=== PATIENT | male | born 1955 | race Native Hawaiian/Other Pacific Islander ===

== ENCOUNTER → 2019-01-23 | Outpatient (CLI) | payer BC ==
[2019-01-23 12:41] LABS: Appearance,Urine Clear (Clear); Bilirubin,Urine Negative (Negative); Blood,Urine Negative (Negative); Color,Urine Light Yellow; Glucose,Urine (UA) Negative (Negative); Ketones,Urine Negative (Negative); Leukocyte Esterase,Urine Negative (Negative); Nitrite,Urine Negative (Negative); PH, Urine 6.5 (5.0-8.0); Protein,Urine Negative (Negative); Specific Gravity,Urine 1.013 (1.001-1.035); Urobilinogen,Urine <2.0 mg/dL (<2.0)
[2019-01-23 12:42] LABS: Basophils % (A) 1 %; Eosinophils # (A) 0.2 k/uL (0-0.7); Eosinophils % (A) 3 %; HCT 43.4 % (39.0-53.0); HGB 14.5 gm/dL (13.0-17.5); Lymphocytes % (A) 30 %; MCH 31.2 pg (25.0-35.0); MCHC 33.4 g/dL (31.0-37.0); MCV 93.6 fL (80.0-100.0); Mean Platelet Volume 6.5; Monocytes # (A) 0.4 k/uL (0-1.0); Monocytes % (A) 6 %; Neutrophils # (A) 3.7 k/uL (1.3-7.7); Neutrophils % (A) 57 %; Platelet Count 251 k/uL (150-450); RBC 4.64 m/uL (4.30-5.90); RDW 12.9 % (11.5-15.5); WBC 6.5 k/uL (3.8-10.6)
[2019-01-23 12:55] LABS: Prothrombin Time 10.5 sec (9.0-12.0)
[2019-01-23 13:01] LABS: African American GFR (CKD) >90 (>60 ml/min/1.73 sqM); Anion Gap 9 mmol/L; Blood Urea Nitrogen 15 mg/dL (9-20); Calcium 9.1 mg/dL (8.4-10.2); Carbon Dioxide 23 mmol/L (22-30); Chloride 108 mmol/L (98-107); Glucose 109 mg/dL (74-99); Potassium 4.2 mmol/L (3.5-5.1); Sodium 140 mmol/L (137-145)
--- NOTE | 2019-01-23 14:48 | XR ---
EXAMINATION TYPE: XR chest 2V DATE OF EXAM: 01/23/2019 COMPARISON: NONE HISTORY: Cervical spinal canal stenosis. Preoperative evaluation. Recent chest pain. TECHNIQUE: Frontal and lateral views of the chest are obtained. FINDINGS: There is no focal air space opacity, pleural effusion, or pneumothorax seen. The cardiac silhouette size is within normal limits. Mild to moderate multilevel degenerative disc disease of th e thoracic spine is seen. The osseous structures are intact. IMPRESSION: No acute cardiopulmonary process.
== END ==
LOC: LABPAT 11:28
PROVIDERS: ATTEND Orthopaedic Surgery Orthopaedic Surgery of the Spine
DX: Z01.818 Encounter for other preprocedural examination (principal); Z01.812 Encounter for preprocedural laboratory examination; M48.02 Spinal stenosis, cervical region
CPT/HCPCS: 36415; 71046; 80048; 81003; 85025; 85610

== ENCOUNTER 2019-02-01 06:35 | Day surgery (SDC) | payer BC ==
[~2019-02-01 06:35] MED LIST: BACITRACIN 50,000 UNIT, POLYMYXIN B 500,000 UNIT in SODIUM CHLORIDE 0.9% IRRIGATIO 1,00... IRRIGATION ONE; LIDOCAINE 1% 20 ML VIAL (10MG/ML) FOR IV START INTRADERMA PRN; ONDANSETRON 4 MG/2 ML VIAL IVP ONE; ceFAZolin IN SWFI 2 GM/20 ML SYRINGE IVP ONE
[2019-02-01] MEDS: LACTATED RINGERS 1,000 ML IV SCH (07:10)
[2019-02-01] MEDS ORDERED: MIDAZOLAM (PF) 2 MG/2 ML VIAL IV ONE (07:27)
[2019-02-01] MEDS ORDERED: fentaNYL (PF) 50 MCG/ML 2 ML AMP ONE (07:58)
[2019-02-01] MEDS ORDERED: LIDOCAINE 1% INJ 10MG/ML (20 ML MDV) ONE (07:58)
[2019-02-01] MEDS ORDERED: HYDROmorphone (PF) 1 MG/ML ONE (07:58)
[2019-02-01] MEDS ORDERED: PHENYLEPHRINE-0.9% NACL SYG 1 MG/10 ML SYRINGE ONE (07:58)
[2019-02-01] MEDS ORDERED: MIDAZOLAM 2 MG/2 ML VIAL ONE (07:58)
[2019-02-01] MEDS ORDERED: DEXAMETHASONE SOD PHOS (MDV) 100 MG/10 ML VIAL ONE (07:58)
[2019-02-01] MEDS ORDERED: SUCCINYLCHOLINE CHLORIDE 100 MG/5 ML SYR IV ONE (07:58)
[2019-02-01] MEDS ORDERED: PROPOFOL 10 MG/ML 20 ML VIAL IV ONE (07:58)
[2019-02-01] MEDS ORDERED: ePHEDrine SULFATE/0.9% NACL/PF 50 MG/5 ML SYRINGE IV ONE (07:58)
[2019-02-01] MEDS ORDERED: BUPIVACAINE-EPI 0.5%-1:200,000 10 ML VIAL SQ ONE ×2 (08:45)
[2019-02-01] MEDS ORDERED: GELATIN SPONGE,ABSORB (LARGE) 1 EACH SPONGE MISCELLANE ONE (08:45)
[2019-02-01] MEDS ORDERED: THROMBIN (BOVINE) 5,000 UNIT VIAL TOPICAL ONE (08:46)
[2019-02-01] MEDS ORDERED: LACTATED RINGERS 1,000 ML IV ONE (08:47)
[2019-02-01] MEDS ORDERED: MAGNESIUM HYDROXIDE 2,400 MG/10 ML CUP PO PRN (10:56)
[2019-02-01] MEDS ORDERED: HYDROmorphone 1 MG/ML 1 ML SYRINGE IVP PRN (10:56)
[2019-02-01] MEDS ORDERED: DIAZEPAM 5 MG TAB PO PRN (10:56)
[2019-02-01] MEDS ORDERED: ACETAMINOPHEN TAB 325 MG TAB PO PRN (10:56)
[2019-02-01] MEDS ORDERED: ONDANSETRON 4 MG/2 ML VIAL IVP PRN (10:56)
[2019-02-01] MEDS ORDERED: ALBUTEROL NEBULIZED 2.5 MG/3 ML INHALATION PRN (10:57)
[2019-02-01] MEDS ORDERED: FAMOTIDINE 20 MG TAB PO PRN (10:57)
--- NOTE | 2019-02-01 11:05 | P.OP ---
Date of Procedure: 02/01/19 Preoperative Diagnosis: Cervical myelopathy, cervical stenosis C3 4 C4 5 C5 6 C6 7, herniated nucleus pulposus C3 4 C4 5 C5 6 C6 7, upper extremity radiculopathy, upper extremity weakness, neck pain, upper extremity pain Postoperative Diagnosis: Same Anesthesia: GETA Pathology: none sent Condition: stable Disposition: PACU Description of Procedure: BRIEF OPERATIVE NOTE Preoperative Diagnosis:Cervical myelopathy, cervical stenosis C3 4 C4 5 C5 6 C6 7, herniated nucleus pulposus C3 4 C4 5 C5 6 C6 7, upper extremity radiculopathy, upper extremity weakness, neck pain, upper extremity pain Postoperative Diagnosis:Cervical myelopathy, cervical stenosis C3 4 C4 5 C5 6 C6 7, herniated nucleus pulposus C3 4 C4 5 C5 6 C6 7, upper extremity radiculopathy, upper extremity weakness, neck pain, upper extremity pain Procedure: Anterior cervical decompression with discectomy and fusion C3 4 C4 5 C5 6 C6 7 Placement of interbody graftC3 4 C4 5 C5 6 C6 7 Application of anterior cervical plate C3 [id number] Surgeon: Dr. Fair Robotic Weld Technician: Vladislav Wilson is present throughout the entire the case persistence during positioning, dissection, exposure, visualization, and all crucial elements of the case as well as closure. Anesthesia: General anesthesia per Dr. Bejarano Estimated blood loss: Approximately 70 mL Complications: None apparent Components implanted: K2M Mcmullen anterior cervical plate system with a 73 mm plate and 1014 mm screws with 4Vikos interbody allograft bone graft and 1 mL of DBX bone putty Disposition: To recovery room in good stable condition. OPERATIVE INDICATIONS The patient has had long-standing issues in their neck and upper extremities. He was having evidence of myelopathy and weakness at his left upper extremity. He was found have severe cervical stenosis at C3 4 C4 5 C5 6 and C6 7 with disc herniation which correlated well with his neck and upper extremity symptoms. He is not having any benefit despite aggressive conservative care. The patient has been through conservative treatment. We discussed various treatment options including surgery, and the patient wishes to proceed with surgery We discussed the risk, patient's alternatives and benefits of surgery including but not limited to, risk of bleeding risk of infection, risk of need for further surgery, risk of decreased, loss of motion, muscle function, malunion nonunion, hardware failure, nerve damage, paralysis, heart attack, and . The patient had multiple questions on many different occasions and we try to go through them as thoroughly as possible healing which he can understand. We answered his questions as best of our ability and he elected to proceed with surgical intervention. OPERATIVE SUMMARY After discussing all the risks, patient alternatives and benefits at length, the patient elected to proceed with surgical intervention, signed informed consent, and presented for their procedure. The patient was seen and examined in the preoperative holding area and the surgical site was marked. The patient was given antibiotics and brought to the operating room. The patient was positioned on the operating room table in a supine position being careful to pad any bony prominences and pressure points. The patient was sedated and intubated by anesthesia in standard fashion. Once the airway and C-spine were stabilized the patient's arms were padded and tucked at her side, with her shoulders gently taped. The head was placed in a donut pad with the neck in good neutral alignment and position. We were careful to maintain the patient's cervical spine and good neutral alignment and position throughout. The patient was prepped and draped in a normal standard fashion. An appropriate timeout and keystone protocol performed. We were able to proceed with the surgery. The local wound area was infiltrated with local anesthetic. An incision was made longitudinally on the right side with a carotid incision approximately 4 cm in length over the appropriate levels from C3 to C7. Dissection was taken down subcutaneously to the level of the platysma which was split in line with its fibers. Dissection was taken with a carotid approach, with the trachea and esophagus medial and the carotid sheath laterally. We dissected down to the anterior surface of the vertebral bodies from C3 to C7. There were large anterior cervical osteophytes which are palpable. Intraoperative x-ray was taken which showed a marker at the appropriate level at C4 5. With the appropriate level positively confirmed, we were able to proceed with discectomy at the appropriate levels at C3 4 C4 5 C5 6 and C6 7. All of the operative levels were exposed appropriately. The patient had all their twitches back, and there was no evidence of recurrent laryngeal issue. The wound was copiously irrigated and suctioned dry as had been done periodically throughout the case. At the appropriate level/levels, starting at C3 4 and in moving caudally to C4 5 than C5 6 and then C6 7 , I established an annulotomy with an 11 blade scalpel. A discectomy was performed with a combination of pituitary rongeurs, curettes, a high-speed bur, and Kerrison rongeurs. The posterior longitudinal ligament was taken down as were any posterior osteophytes. This gave good central and bilateral foraminal decompression. There had been significant stenosis and evidence of disc herniation particular to the left side at each level and this was remedied with a decompression and discectomy. There is no evidence of any dural tear or leak. The endplates were prepared with a high-speed bur. With the endplates in good parallel position, I was able to size for the appropriate size interbody graft. The wound was irrigated and suctioned dry the graft was prepared and malleted into position. It had good alignment and position with the anterior surface flush with the anterior surface of the vertebral bodies. This was done similarly the appropriate levels first at C3 4 and then at C4 5 than at C5 6 and then at C6 7. With the grafts intact, I was able to measure and contour and appropriate sized plate. The plate was positioned at the midline over the appropriate levels from C3 to C7. Screw holes were established with a hand drill and drill guide. Screws were placed in good alignment and position with excellent bony purchase. They were seated under the locking device. The construct was checked and found to be stable. Intraoperative x-ray was taken which showed good alignment and position of the implants at the appropriate levels. There was no evidence of any dural tear or leak. Good hemostasis was maintained. The wound was copiously irrigated and suctioned dry as had been done periodically throughout the case. The platysma was closed with absorbable suture. The subcutaneous tissue was closed. The subcuticular tissue was closed with absorbable suture. The wound was cleaned and dried and dressed appropriately. A soft cervical collar was placed appropriately. The patient was woken up by anesthesia, extubated, transferred back gently to their hospital bed and brought to the recovery room in good stable condition. The patient will be admitted to the hospital for appropriate postoperative care, medical management and monitoring. We will continue to follow them closely about the postoperative course.
[2019-02-01] MEDS: HYDROmorphone 0.5 MG/0.5 ML SYRINGE IVP PRN ×6 (11:34→20:07)
[2019-02-01 15:27] VITALS: BMI 33.1
[2019-02-01] MEDS: SODIUM CHLORIDE 0.9% 1,000 ML IV SCH (15:33)
[2019-02-01] MEDS: ceFAZolin IN SWFI 2 GM/20 ML SYRINGE IVP SCH (17:51)
[2019-02-01] MEDS: HYDROcodone/APAP 5-325MG 1 EACH TAB PO PRN ×2 (18:05→23:18)
[2019-02-01] MEDS: BENZOCAINE/MENTHOL LOZENG 1 EACH LOZENGE MUCOUS MEM PRN (20:06)
[2019-02-02] MEDS: ceFAZolin IN SWFI 2 GM/20 ML SYRINGE IVP SCH (00:07)
[2019-02-02] MEDS: BENZOCAINE/MENTHOL LOZENG 1 EACH LOZENGE MUCOUS MEM PRN ×2 (02:43→07:32)
[2019-02-02] MEDS: SODIUM CHLORIDE 0.9% 1,000 ML IV SCH ×2 (03:43→08:30)
[2019-02-02] MEDS: LACTATED RINGERS 1,000 ML IV SCH (07:22)
[2019-02-02 07:31] VITALS: BP 160/76; PULSE 71; RESP 20; TEMP 98.6
[2019-02-02] MEDS: HYDROcodone/APAP 5-325MG 1 EACH TAB PO PRN ×2 (07:32→11:31)
--- NOTE | 2019-02-02 08:51 | P.PN ---
Progress Note - Text Progress Note Date: 02/02/19 Postoperative day #1, discharge summary Patient is seen and examined today at bedside. The patient has some pain around the surgical site as expected. Pain is being controlled with medication. He says he is not having pain and is happy with his results thus thus far. He says his neck does feel tight when he lays back and he feels like he has to catch his breath and has had trouble sleeping because of this. He is breathing well and he is conversant without any shortness of breath. Physical Exam Afebrile with stable vital signs Abdomen is soft nontender. Chest has good excursion deep and space expiration The incision site is clean dry and intact. No erythema there is no purulence. I changed his dressing today there was some initial bleeding overnight but this has stopped. His neck is soft and supple. There is no significant swelling. His no tension at his neck. Extremities have not had neurologic change from prior to surgery. He has maintained his strength in his bilateral hands without any new deficits. He has sustained abduction. Calves and thighs were soft nontender without evidence of DVT. Assessment/Plan Postoperative day #1 status post anterior cervical discectomy and fusion at C34 C4 5 C5 6 and C6 7 for his cervical myelopathy and cervical stenosis Patient is progressing as expected from the surgery. His neck looks to be healing properly without any significant swelling. He is somewhat of an anxious person and I think was feeling some tightness around his neck with a bandage and the mild swelling when he was laying back but he is not having any airway issues that I can see. He is moving quite well about his room and is tolerating a soft diet. I think it is okay for the patient to plan for discharge home today. He has completed prophylactic antibiotic signs symptoms of infection. His tolerate soft diet and is mobile. His wound appears to be healing appropriately. We will continue to increase the patient's mobilization with therapy. We will continue pain control with oral medications. I will have him take some Valium for his anxiety and help him sleep for home.
[2019-02-02] MEDS ORDERED: LOSARTAN 50 MG TAB PO SCH (09:00)
[2019-02-02] MEDS ORDERED: amLODIPine 10 MG TAB PO SCH (09:00)
[2019-02-02] MEDS ORDERED: ATORVASTATIN 40 MG TAB PO SCH (09:00)
[2019-02-02] MEDS ORDERED: ASPIRIN 81 MG PO SCH (09:00)
[2019-02-02] MEDS ORDERED: SENNOSIDES-DOCUSATE SODIUM 1 EACH TAB PO SCH (09:00)
--- NOTE | 2019-02-02 15:15 | XR ---
Cervical spine HISTORY: Status post anterior cervical fusion and discectomy Single lateral cervical spine correlated to prior exam same dated earlier time There is been interval anterior cervical fusion and discectomy at [id number]-C6-C7. C7 level not well s een. Vertebral spacing blocks of been placed. There is anatomic alignment. Orogastric tube is in plac e. IMPRESSION: Orthopedic follow-up
--- NOTE | 2019-02-02 15:18 | XR ---
Cervical spine HISTORY: Needle placement Single lateral cervical spine is submitted. Degenerative disc changes are seen. Endotracheal tube is in place. There is a needle at the C4-5 inte rvertebral disc space. IMPRESSION: Orthopedic localization.
== END 2019-02-02 12:40 | disposition home or self-care (01) ==
LOC: OR 06:35 → 4SSUR 13:33 → OR 02-02 12:40
PROVIDERS: ATTEND Orthopaedic Surgery Orthopaedic Surgery of the Spine
DX: M48.02 Spinal stenosis, cervical region (principal); M47.22 Other spondylosis with radiculopathy, cervical region; M47.12 Other spondylosis with myelopathy, cervical region; M50.01 Cervical disc disorder with myelopathy, high cervical region; M50.11 Cervical disc disorder with radiculopathy, high cervical region; M62.81 Muscle weakness (generalized); I10 Essential (primary) hypertension; E66.3 Overweight; M75.42 Impingement syndrome of left shoulder; M19.012 Primary osteoarthritis, left shoulder; F41.9 Anxiety disorder, unspecified; H91.90 Unspecified hearing loss, unspecified ear; E78.5 Hyperlipidemia, unspecified; K21.9 Gastro-esophageal reflux disease without esophagitis; Z91.040 Latex allergy status; Z82.49 Family history of ischemic heart disease and other diseases of the circulatory system; Z87.891 Personal history of nicotine dependence; Z79.82 Long term (current) use of aspirin; Z79.899 Other long term (current) drug therapy; Z68.33 Body mass index [BMI] 33.0-33.9, adult
CPT/HCPCS: 72020; 22551; 22552 ×3; 22846; 20931; C1713 ×2; C1762 ×2; J2250 ×2; J2405; J2001; J3010; J1170 ×2; J1100; J2370; J0330; J2704; J0690 ×2; 86850; 86900; 86901

== ENCOUNTER 2019-06-13 07:15 | Day surgery (SDC) | payer BC ==
[2019-06-09 12:36] VITALS: BMI 32.9
[~2019-06-13 07:15] MED LIST changes: -BACITRACIN 50,000 UNIT, POLYMYXIN B 500,000 UNIT in SODIUM CHLORIDE 0.9% IRRIGATIO 1,00... IRRIGATION ONE; +LACTATED RINGERS 1,000 ML IV SCH; -ONDANSETRON 4 MG/2 ML VIAL IVP ONE; -ceFAZolin IN SWFI 2 GM/20 ML SYRINGE IVP ONE
[2019-06-13 07:46] VITALS: TEMP 97.1
[2019-06-13] MEDS ORDERED: ONDANSETRON 4 MG/2 ML VIAL IVP ONE (07:55)
[2019-06-13] MEDS ORDERED: PROPOFOL 10 MG/ML 20 ML VIAL IV ONE (08:09)
[2019-06-13] MEDS ORDERED: LIDOCAINE 1% INJ 10MG/ML (20 ML MDV) ONE (08:09)
--- NOTE | 2019-06-13 08:32 | P.OP ---
Date of Procedure: 06/13/19 Preoperative Diagnosis: Screening Postoperative Diagnosis: Colon polyp, descending colon Diverticulosis Procedure(s) Performed: Colonoscopy with hot snare polypectomy Surgeon: [place] Pathology: other (Descending colon polyp) Condition: stable Disposition: same day Indications for Procedure: 64-year-old male presents for screening colonoscopy. All risks, benefits and alternatives were provided to the patient. He did provide consent prior to attending the endoscopy suite. Operative Findings: Descending colon polyp Description of Procedure: The patient was brought into the endoscopy suite he was then placed in left lateral decubitus position and adequate sedation was achieved using conscious sedation. A digital rectal exam was performed and mild internal hemorrhage were palpated. An endoscope was then placed in the rectum and advanced to the cecum as identified by 1 harmon including the appendiceal orifice and the ileocecal valve. The prep was good. The colon scope was then slowly withdrawn, examining for any mucosal abdomen mildly. The cecum, ascending, transverse, descending and sigmoid colon were visualized adequately. There was a sizable polyp noted in the descending colon. This was removed in its entirety using hot snare polypectomy. Hemostasis was noted to be maintained. The patient also was noted to have diverticulosis scattered throughout the sigmoid colon. Retroflexion was performed in the rectum and mild internal hemorrhage or visible. Excess air was removed, the colonoscope withdrawn and the procedure terminated. The patient was then transferred to the recovery unit in stable condition. Repeat colonoscopy should be performed in 5 years.
[2019-06-13 08:48] VITALS: BP 110/67; PULSE 67; RESP 18
== END 2019-06-13 08:59 | disposition home or self-care (01) ==
LOC: ORWHC2ENDO 07:15
PROVIDERS: ATTEND Surgery
DX: Z12.11 Encounter for screening for malignant neoplasm of colon (principal); K63.5 Polyp of colon; K57.30 Diverticulosis of large intestine without perforation or abscess without bleeding; K64.8 Other hemorrhoids; Z86.010 Personal history of colon polyps; I25.10 Atherosclerotic heart disease of native coronary artery without angina pectoris; I10 Essential (primary) hypertension; E78.00 Pure hypercholesterolemia, unspecified; I25.2 Old myocardial infarction; E78.5 Hyperlipidemia, unspecified; F32.9 Major depressive disorder, single episode, unspecified; H54.61 Unqualified visual loss, right eye, normal vision left eye; Z87.891 Personal history of nicotine dependence; Z83.3 Family history of diabetes mellitus; Z80.1 Family history of malignant neoplasm of trachea, bronchus and lung; Z82.49 Family history of ischemic heart disease and other diseases of the circulatory system; Z79.82 Long term (current) use of aspirin; Z79.899 Other long term (current) drug therapy; Z91.040 Latex allergy status
CPT/HCPCS: 88305; 45385; J2405; J2001; J2704

== ENCOUNTER → 2020-08-01 | Outpatient (CLI) | payer BC | END | disposition home or self-care (01) | LOC: LABWHC1 15:52 | PROVIDERS: ATTEND Internal Medicine | DX: Z20.828 Contact with and (suspected) exposure to other viral communicable diseases (principal) | CPT/HCPCS: 87635; C9803 ==

== ENCOUNTER 2023-08-06 13:06 | Day surgery (SDC) | payer BC, MEDICARE ==
[2023-08-05 10:04] VITALS: BMI 32.5
[~2023-08-06 13:06] MED LIST changes: -LIDOCAINE 1% 20 ML VIAL (10MG/ML) FOR IV START INTRADERMA PRN
[2023-08-06 14:37] LABS: Glucose,Whole Blood 121 mg/dL (70-110)
[2023-08-06 14:40] VITALS: RESP 16; TEMP 96.9
[2023-08-06] MEDS ORDERED: LIDOCAINE 1% INJ 10MG/ML (20 ML MDV) ONE (16:12)
[2023-08-06] MEDS ORDERED: PROPOFOL 10 MG/ML 20 ML VIAL IV ONE (16:12)
--- NOTE | 2023-08-06 16:18 | P.PCN ---
Date of Procedure: 08/06/23 Procedure(s) Performed: BRIEF HISTORY: Patient is a 68-year-old, pleasant, male scheduled for an upper endoscopy as a part of evaluation of long-standing history of GERD and excessive burping for the last several months duration. He was started on Pepcid 20 mg twice daily with some relief PROCEDURE PERFORMED: Esophagogastroduodenoscopy with biopsy. PREOPERATIVE DIAGNOSIS: GERD/excessive burping. IV sedation per anesthesia. PROCEDURE: After informed consent was obtained, the patient was brought into the endoscopy unit. IV sedation was administered by Anesthesia under continuous monitoring. Initially the Olympus GIF-140 video endoscope was inserted into the mouth. Esophagus intubated without any difficulty. It was gradually advanced into the stomach and duodenum and carefully examined. The bulb and the second part of the duodenum appeared normal. The scope at this time was withdrawn to the stomach, adequately insufflated with air, and upon careful examination, mucosa of the antrum, had mild gastritis and biopsies were done from this area. Mucosa of the body, cardia and the fundus appeared normal. The scope was then withdrawn into the esophagus. The GE junction was located at 41 cm from the incisors. The esophagus appeared normal. There were no erosions or ulcerations seen , biopsies were done from the distal esophagus and the patient tolerated the procedure well. IMPRESSION: 1. Mild antral gastritis. 2. Normal-appearing esophagus with no evidence of esophagitis or Aly's esophagus. RECOMMENDATIONS: The findings of this examination were discussed with the patient as well as his family. Follow with the biopsy results. He will continue with Pepcid 20 mg twice daily and follow antireflux measures..
[2023-08-06 16:48] LABS: Glucose,Whole Blood 117 mg/dL (70-110)
[2023-08-06 17:01] VITALS: BP 147/89; PULSE 85
== END 2023-08-06 17:06 | disposition home or self-care (01) ==
LOC: ORWHC2ENDO 13:06
PROVIDERS: ATTEND Internal Medicine Gastroenterology
DX: K29.50 Unspecified chronic gastritis without bleeding (principal); K21.00 Gastro-esophageal reflux disease with esophagitis, without bleeding; I10 Essential (primary) hypertension; E78.5 Hyperlipidemia, unspecified; E11.9 Type 2 diabetes mellitus without complications; F41.9 Anxiety disorder, unspecified; Z87.891 Personal history of nicotine dependence; Z79.899 Other long term (current) drug therapy
CPT/HCPCS: 88305; 88342; 43239; J2001; J2704